=== PATIENT | male | born 1975 | race Caucasian/White ===

== ENCOUNTER 2020-08-06 17:12 | Outpatient (CLI) | payer OTHER, SELFPAY ==
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
== END 2020-08-06 17:13 | disposition home or self-care (01) ==
LOC: RADSHAW 17:16
PROVIDERS: PCP Internal Medicine; Visit Provider Internal Medicine
DX: R51.9 Headache, unspecified (principal); J34.1 Cyst and mucocele of nose and nasal sinus
CPT/HCPCS: 70551

== ENCOUNTER 2022-03-26 12:35 | Emergency (ER) | payer OTHER, SELFPAY ==
[2022-03-26 13:33] VITALS: BP 141/62; PULSE 79; RESP 14; TEMP 36.9; O2SAT 94; BMI 30.4
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
--- NOTE | 2022-03-26 14:01 | XR_ITS ---
WS: [id number] Exam: XR thoracic spine 3V* [id number] Date/Time of Exam: 03/26/2022 2:01 PM Reason For Exam: back pain Findings: In the AP projection, the thoracic spine is straight. In the lateral projection, the thoracic curve is well maintained. The intervertebral disc spaces are intact. No fractures or anomalies of the tho racic spine are noted. XR/XR thoracic spine 3V* [id number] IMPRESSION: Negative thoracic spine.
== END 2022-03-26 14:51 | disposition home or self-care (01) ==
PROVIDERS: Emergency Provider Physician Assistant; PCP Internal Medicine
DX: S29.012A Strain of muscle and tendon of back wall of thorax, initial encounter (principal); V54.5XXA Driver of pick-up truck or van injured in collision with heavy transport vehicle or bus in traffic accident, initial encounter
CPT/HCPCS: 72072; 99283